=== PATIENT | male | born 1965 | race African-American/Black ===

== ENCOUNTER 2019-03-13 17:06 | Inpatient (IN) | payer OTHER ==
[2019-03-13 22:41] VITALS: BMI 28.8
[2019-03-14] MEDS ORDERED: MAG HYDROX/AL HYDROX/SIMETH 30 ML UNIT-DOSE CUP PO PRN (02:41)
[2019-03-14] MEDS ORDERED: ACETAMINOPHEN 325 MG TABLET (FP) PO PRN ×2 (02:41)
[2019-03-14] MEDS ORDERED: METHOCARBAMOL 500 MG TABLET PO PRN (02:41)
[2019-03-14] MEDS ORDERED: IBUPROFEN 400 MG TABLET (FP) PO PRN (02:41)
[2019-03-14] MEDS ORDERED: BISMUTH SUBSALICYLATE 524 MG/30 ML UD PO PRN (02:41)
[2019-03-14] MEDS ORDERED: ONDANSETRON *ODT* 4 MG TABLET SL PRN (02:41)
[2019-03-14] MEDS ORDERED: MAGNESIUM CITRATE 300 ML BOTTLE PO PRN (02:41)
[2019-03-14] MEDS ORDERED: MELATONIN 5 MG TABLETS PO PRN (02:41)
[2019-03-14] MEDS ORDERED: MENTHOL/PHENOL 1 EACH UD MM PRN (02:41)
[2019-03-14] MEDS ORDERED: NICOTINE POLACRILEX 2 MG GUM BUC PRN (02:41)
[2019-03-14] MEDS ORDERED: MAGNESIUM HYDROX 2400MG/30ML ORAL SUSPENSION 30 ML CUP PO PRN (02:41)
[2019-03-14] MEDS ORDERED: DICYCLOMINE HCL 10 MG CAPSULE PO PRN (02:41)
[2019-03-14] MEDS ORDERED: P-EPHED 60MG/TRIPROLIDI 2.5MG TABLET PO PRN (02:41)
[2019-03-14] MEDS ORDERED: chlordiazePOXIDE HCL 25 MG CAPSULE PO PRN (02:41)
[2019-03-14] MEDS ORDERED: hydrOXYzine PAMOATE 25 MG CAPSULE (FP) PO PRN (02:41)
[2019-03-14] MEDS ORDERED: guaiFENesin 200 MG/10 ML 10 ML UNIT-DOSE CUPS PO PRN (02:41)
--- NOTE | 2019-03-14 02:56 | PN ---
S CIWA - CIWA Score Nausea/Vomitin-No Nausea/No Vomiting Muscle Tremors: 1-None Visible, but [place] Anxiety: 4-Mod. Anxious/Guarded Agitation: 4-Moderately Restless Paroxysmal Sweats: 3 Orientation: 0-Oriented Tacttile Disturbances: 0-None Auditory Disturbances: 0-None Visual Disturbances: 0-None Headache: 0-None Present CIWA-Ar Total Score: 12 BHS Progress Note (SOAP) Subjective: C/O WITHDRAWAL SX'S Objective: 03/14/19 02:37 54 Y.O. MALE WITH ALCOHOLISM AND CRACK COCAINE DEPENDENCE HERE FOR DETOX. HE IS REFERRED TODAY BY [facility]. THIS IS HIS FIRST ADMISSION HERE. PMHX- ASTHMA, SZ D/O PSYCH- BIPOLAR ANXIETY DEPRESSION UTOX + THC, PAM MARIA ANTONIA O A/O X3 SLEEPY BUT EASILY AROUSABLE CV RRR LUNGS CTAB EXTREMITIES FROM X4 SKIN-MOIST/INTACT Assessment: 03/14/19 02:40 F10.23 Plan: ADMIT TO DETOX LIBRIUM PROTOCOL
[2019-03-14] MEDS ORDERED: TUBERCULIN PPD 5 TU/0.1ML VIAL ID ONE (03:41)
[2019-03-14] MEDS: chlordiazePOXIDE HCL 25 MG CAPSULE PO SCH ×4 (06:48→22:13)
--- NOTE | 2019-03-14 08:50 | HP ---
CIWA Score Nausea/Vomitin-No Nausea/No Vomiting Muscle Tremors: 1-None Visible, but [place] Anxiety: 4-Mod. Anxious/Guarded Agitation: 4-Moderately Restless Paroxysmal Sweats: 3 Orientation: 0-Oriented Tacttile Disturbances: 0-None Auditory Disturbances: 0-None Visual Disturbances: 0-None Headache: 0-None Present CIWA-Ar Total Score: 12 - Admission Criteria OASAS Guidelines: Admission for Medically Managed Detox: Requires at least one of the followin. CIWA greater than 12 2. Seizures within the past 24 hours 3. Delirium tremens within the past 24 hours 4. Hallucinations within the past 24 hours 5. Acute intervention needed for co occurring medical disorder 6. Acute intervention needed for co occurring psychiatric disorder 7. Severe withdrawal that cannot be handled at a lower level of care (continued vomiting, continued diarrhea, abnormal vital signs) requiring intravenous medication and/or fluids 8. Admission ROS S - HPI Chief Complaint: I need to be here to get clean from alcohol. Allergies/Adverse Reactions: Allergies Allergy/AdvReac Type Severity Reaction Status Date / Time shellfish derived Allergy Severe Difficulty Verified 03/13/19 22:36 Breathing History of Present Illness: pt is a 54yrold male with a history of alcohol and crack/cocaine dependence seeking detox for treatment. Exam Limitations: No Limitations - Ebola screening Have you traveled outside of the country in the last 21 days: No Have you had contact with anyone from an Ebola affected area: No Have you been sick,other than usual withdrawal symptoms: No Do you have a fever: No - Review of Systems Constitutional: Chills, Diaphoresis, Changes in sleep EENT: reports: No Symptoms Reported Respiratory: reports: No Symptoms reported Cardiac: reports: No Symptoms Reported GI: reports: No Symptoms Reported : reports: No Symptoms Reported Musculoskeletal: reports: Joint Pain, Muscle Pain Integumentary: reports: No Symptoms Reported Neuro: reports: No Symptoms reported Endocrine: reports: Excessive Sweating, Flushing, Intolerance to Cold, Intolerance to Heat Hematology: reports: No Symptoms Reported Psychiatric: reports: Judgement Intact, Mood/Affect Appropiate, Orientated x3, Agitated, Anxious Other Systems: Reviewed and Negative Patient History - Patient Medical History Hx Anemia: No Hx Asthma: Yes (albuterol) Hx Chronic Obstructive Pulmonary Disease (COPD): No Hx Cancer: No Hx Cardiac Disorders: No Hx Congestive Heart Failure: No Hx Hypertension: No Hx Hypercholesterolemia: No Hx Pacemaker: No HX Cerebrovascular Accident: No Hx Seizures: Yes (last seizure 2yrs ago on depakote ) Hx Dementia: No Hx Diabetes: No Hx Gastrointestinal Disorders: No Hx Liver Disease: No Hx Genitourinary Disorders: No Hx Sexually Transmitted Disorders: No Hx Renal Disease (ESRD): No Hx Thyroid Disease: No Hx Human Immunodeficiency Virus (HIV): No (negative) Hx Hepatitis C: No (negative) Hx Depression: Yes Hx Suicide Attempt: No (pt denies) Hx Bipolar Disorder: Yes Hx Schizophrenia: No - Patient Surgical History Past Surgical History: No Anesthesia Reaction: No - PPD History Previous Implant?: No Documented Results: Negative w/o proof Implanted On Prior R Admission?: No Date: 03/14/19 PPD to be Administered?: Yes - Reproductive History Patient is a Female of Child Bearing Age (11 -55 yrs old): No - Smoking Cessation Smoking history: Current every day smoker Have you smoked in the past 12 months: Yes Aproximately how many cigarettes per day: 20 Hx Chewing Tobacco Use: No Initiated information on smoking cessation: Yes 'Breaking Loose' booklet given: 03/14/19 - Substance & Tx. History Hx Alcohol Use: Yes Hx Substance Use: Yes Substance Use Type: Alcohol, Cocaine Hx Substance Use Treatment: Yes (last detox [address] [place] [address]) - Substances abused Alcohol Substance route: Oral Frequency: 3-6 times per week Amount used: 4-5 40 ounces beer Age of first use: 21 Date of last use: 03/13/19 Crack Substance route: Smoking Frequency: 3-6 times per week Amount used: $100 Age of first use: 21 Date of last use: 03/06/19 Family Disease History - Family Disease History Family Disease History: Diabetes: Mother Admission Physical Exam BHS - Vital Signs Vital Signs: Vital Signs - 24 hr 03/13/19 03/14/19 03/14/19 22:26 01:25 03:30 Temperature 97.2 F L 97.2 F L 97.9 F Pulse Rate 99 H 99 H 72 Respiratory 16 16 18 Rate Blood Pressure 130/75 130/75 133/90 03/14/19 06:00 Temperature 97.7 F Pulse Rate 77 Respiratory 18 Rate Blood Pressure 111/71 - Physical General Appearance: Yes: Appropriately Dressed, Tremorous, Sweating, Anxious HEENTM: Yes: Hearing grossly Normal, Nasal Congestion Respiratory: Yes: Lungs Clear Neck: Yes: No masses,lesions,Nodules Breast: Yes: Within Normal Limits Cardiology: Yes: Regular Rhythm, Regular Rate, S1, S2 Abdominal: Yes: Normal Bowel Sounds, Non Tender, Soft Genitourinary: Yes: Within Normal Limits Back: Yes: Normal Inspection Musculoskeletal: Yes: full range of Motion, Back pain Extremities: Yes: Normal Capillary Refill, Normal Inspection, Non-Tender, Tremors Neurological: Yes: Fully Oriented, Alert, Normal Response Integumentary: Yes: Normal Color, Diaphoresis Lymphatic: Yes: Within Normal Limits - Diagnostic (1) Alcohol dependence with uncomplicated withdrawal Current Visit: Yes Status: Chronic (2) Nicotine dependence Current Visit: Yes Status: Chronic Qualifiers: Nicotine product type: cigarettes Substance use status: uncomplicated Qualified Code(s): F17.210 - Nicotine dependence, cigarettes, uncomplicated (3) Seizures Current Visit: Yes Status: Chronic Cleared for Admission S - Detox or Rehab [facility] Level of Care: Medically Managed Detox Regimen/Protocol: Librium Breathalyzer - Breathalyzer Breathalyzer: 0 Urine Drug Screen - Test Device Lot number: [id number] Expiration date: 01/03/21 - Control Is test valid?: Yes - Results Drug screen NEGATIVE: No Urine drug screen results: THC-Marijuana, PAM-Cocaine Inpatient Rehab Admission - Rehab Decision to Admit Inpatient rehab admission?: No
--- NOTE | 2019-03-14 09:10 | CONSULT ---
[facility] Psychiatric Consult - Data Date of interview: 03/14/19 Admission source: [facility] Identifying data: Mr Francisco is a 54 years old single Black male, father of 3 children, unemployed receiving SSI, homeless seeking detox treatment for alcohol and cocaine Substance Abuse History: Reports history of alcohol and crack cocaine use. Refer to addiction counselor/s summary for further information Medical History: Significant bronchial asthma and seizure disorder. . Smokes cigarettes 1 ppd Psychiatric History: Reports that his first psychiatric contact was in 1980 when he was diagnosed with MDD by a psychiatrist in the community. He was started on psychotropic medications which he reports taking for a year. Reports that his next psychiatric contact was in 2002 when his diagnosis was revised to Bipolar Disorder and he was started on Celexa, Depakote and Trazadone. He currently receives outpatient psychiatric treatment at [facility] on in [place] and he is prescribed Celexa 20 mg/day, Depakote ER 1000 mg/ hs and Trazadone 100 mg/hs. Reports last taking medications a week ago. Reports 2 previous suicidal attempt a year apart 2015 and 2016 by tryiing to shoot himself. At present, denies experiencing psychotic, manic symptoms, S/H iseations. However, reports feeling mildly depressed and sleeping poorly Physical/Sexual Abuse/Trauma History: Denies history of emotional, physical or sexual abuse as well as DV relationship. No service Additional Comment: Denies criminal history Mental Status Exam - Mental Status Exam Alert and Oriented to: Time, Place, Person Cognitive Function: Fair Patient Appearance: Well Groomed Mood: Depressed (mildly) Affect: Appropriate Patient Behavior: Cooperative Speech Pattern: Clear Voice Loudness: Normal Thought Process: Intact, Goal Oriented Thought Disorder: Not Present Hallucinations: Denies Suicidal Ideation: Denies Homicidal Ideation: Denies Insight/Judgement: Poor Sleep: Poorly Appetite: Good Muscle strength/Tone: Normal Gait/Station: Normal Psychiatric Findings - Problem List ([place] 1, 2,3) (1) Bipolar II disorder Current Visit: Yes Status: Chronic (2) Substance induced mood disorder Current Visit: Yes Status: Acute (3) Substance-induced sleep disorder Current Visit: Yes Status: Acute (4) Alcohol dependence with uncomplicated withdrawal Current Visit: Yes Status: Acute (5) Cocaine dependence Current Visit: Yes Status: Acute (6) Nicotine dependence Current Visit: Yes Status: Chronic Qualifiers: Nicotine product type: cigarettes Substance use status: uncomplicated Qualified Code(s): F17.210 - Nicotine dependence, cigarettes, uncomplicated (7) Seizures Current Visit: Yes Status: Chronic (8) Bronchial asthma Current Visit: Yes Status: Chronic - Initial Treatment Plan Initial Treatment Plan: 1) Resume Celexa 20 mg po daily, Depakote ER 1000 mg po HS and Trazadone 100 mg po HS. 2) Continue inpatient detoxification
[2019-03-14] MEDS ORDERED: DIVALPROEX NA *ER* EXTEND REL 500 MG TABLET.SA (FP) PO SCH (10:00)
[2019-03-14] MEDS: CITALOPRAM HYDROBROMIDE 20 MG TABLET (FP) PO SCH (11:03)
[2019-03-14] MEDS: PRENATAL VITAMINS W/ FOLIC ACID TABLET (FP) PO SCH (11:03)
[2019-03-14] MEDS: NICOTINE 21 MG/24 HOURS TOPICAL PATCH TD SCH (11:03)
[2019-03-14 12:17] LABS: HEMATOCRIT 37.5 % (35.4-49); HEMOGLOBIN 12.5 GM/dL (11.7-16.9); MCH 28.9 pg (25.7-33.7); MCHC 33.4 g/dl (32.0-35.9); MEAN CELL VOLUME 86.4 fl (80-96); MEAN PLT VOLUME 9.8 fl (7.5-11.1); PLATELET COUNT 178 K/MM3 (134-434); RBC 4.34 M/mm3 (4.00-5.60); RDW 13.7 % (11.9-15.9); WHITE BLOOD COUNT 5.4 K/mm3 (4.0-10.0)
[2019-03-14 12:57] LABS: ALBUMIN 3.7 g/dl (3.4-5.0); BILIRUBIN,TOTAL 0.3 mg/dL (0.2-1); BLOOD UREA NITROGEN 9.4 mg/dL (7-18); CALCIUM 9.2 mg/dL (8.5-10.1); CREATININE 1.1 mg/dL (0.55-1.3); POTASSIUM 4.9 mmol/L (3.5-5.1); TOT PROT 7.1 g/dl (6.4-8.2)
--- NOTE | 2019-03-14 14:34 | EKG ---
Test Reason : Blood Pressure : / mmHG Vent. Rate : 074 BPM Atrial Rate : 074 BPM P-R Int : 178 ms QRS Dur : 086 ms QT Int : 376 ms P-R-T Axes : 052 -05 018 degrees QTc Int : 417 ms POOR DATA QUALITY, INTERPRETATION MAY BE ADVERSELY AFFECTED NORMAL SINUS RHYTHM NORMAL ECG NO PREVIOUS ECGS AVAILABLE Confirmed by Chuck Lane ([id number]) on 03/14/2019 2:34:11 PM Referred By: Confirmed By:Chuck Lane
[2019-03-14] MEDS: traZODone HCL 100 MG TABLET (FP) PO SCH (22:13)
[2019-03-14] MEDS: DIVALPROEX NA *ER* EXTEND REL 500 MG TABLET.SA (FP) PO SCH (22:13)
[2019-03-14] MEDS: THIAMINE HCL 100 MG TABLET (FP) PO SCH (22:14)
[2019-03-15] MEDS: chlordiazePOXIDE HCL 25 MG CAPSULE PO SCH ×4 (06:24→23:14)
[2019-03-15] MEDS ORDERED: ASPIRIN 81 MG CHEWABLE TABLETS ONE (10:10)
[2019-03-15] MEDS ORDERED: NITROGLYCERIN SUBLINGUAL 1/150 0.4 MG TAB SL ONE ×2 (10:30→11:30)
--- NOTE | 2019-03-15 11:05 | PN ---
[facility] Progress Note Note: Pt approached the nursing area clutching the left side of his chest and stating my chest hurts. Pt appeared weak. He was laid to the floor by myself and staff, Nitoglycerin 0.4mg x 2 administered, ASA 81mg administered, O2 via NC at 6liters given. Last BP was 175/91, O2 98%. 911 was called and . Pt was AAOX3, states his chest pain was relieving within 6-8mins after administration of medication. [facility] arrived to have pt sent to [facility] ED for evaluation. Pt in agreement with treatment.
[2019-03-15] MEDS: CITALOPRAM HYDROBROMIDE 20 MG TABLET (FP) PO SCH (11:19)
[2019-03-15] MEDS: NICOTINE 21 MG/24 HOURS TOPICAL PATCH TD SCH (11:19)
[2019-03-15] MEDS: PRENATAL VITAMINS W/ FOLIC ACID TABLET (FP) PO SCH (11:20)
[2019-03-15] MEDS ORDERED: ASPIRIN 81 MG CHEWABLE TABLETS PO ONE (11:30)
[2019-03-15] MEDS: traZODone HCL 100 MG TABLET (FP) PO SCH (22:19)
[2019-03-15] MEDS: THIAMINE HCL 100 MG TABLET (FP) PO SCH (22:19)
[2019-03-16] MEDS ORDERED: chlordiazePOXIDE HCL 10 MG CAPSULE PO PRN
[2019-03-16] MEDS: DIVALPROEX NA *ER* EXTEND REL 500 MG TABLET.SA (FP) PO SCH ×2 (00:30→22:44)
[2019-03-16] MEDS: chlordiazePOXIDE HCL 10 MG CAPSULE PO SCH ×4 (05:58→22:44)
[2019-03-16] MEDS: NICOTINE 21 MG/24 HOURS TOPICAL PATCH TD SCH (11:04)
[2019-03-16] MEDS: CITALOPRAM HYDROBROMIDE 20 MG TABLET (FP) PO SCH (11:04)
[2019-03-16] MEDS: PRENATAL VITAMINS W/ FOLIC ACID TABLET (FP) PO SCH (11:05)
--- NOTE | 2019-03-16 11:47 | PN ---
S CIWA - CIWA Score Nausea/Vomitin Muscle Tremors: 2 Anxiety: 2 Agitation: 2 Paroxysmal Sweats: No Perspiration Orientation: 0-Oriented Tacttile Disturbances: 1-Very Mild Itch/Numbness Auditory Disturbances: 1-Very Mild Visual Disturbances: 0-None Headache: 2-Mild CIWA-Ar Total Score: 12 S Progress Note (SOAP) Subjective: alert,irritable,anxious,interrupted sleep,tremor,no chest pain medically clear to return to [facility] to continue detox Objective: 03/16/19 11:59 Vital Signs Temperature 98.1 F 03/16/19 09:41 Pulse Rate 84 03/16/19 09:41 Respiratory Rate 16 03/16/19 09:41 Blood Pressure 116/72 03/16/19 09:41 O2 Sat by Pulse Oximetry (%) Laboratory Last Values WBC 5.4 K/mm3 (4.0-10.0) 03/14/19 06:00 RBC 4.34 M/mm3 (4.00-5.60) 03/14/19 06:00 Hgb 12.5 GM/dL (11.7-16.9) 03/14/19 06:00 Hct 37.5 % (35.4-49) 03/14/19 06:00 MCV 86.4 fl (80-96) 03/14/19 06:00 MCH 28.9 pg (25.7-33.7) 03/14/19 06:00 MCHC 33.4 g/dl (32.0-35.9) 03/14/19 06:00 RDW 13.7 % (11.9-15.9) 03/14/19 06:00 Plt Count 178 K/MM3 (134-434) 03/14/19 06:00 MPV 9.8 fl (7.5-11.1) 03/14/19 06:00 Sodium 141 mmol/L (136-145) 03/14/19 06:00 Potassium 4.9 mmol/L (3.5-5.1) 03/14/19 06:00 Chloride 107 mmol/L (98-107) 03/14/19 06:00 Carbon Dioxide 29 mmol/L (21-32) 03/14/19 06:00 Anion Gap 5 MMOL/L (8-16) L 03/14/19 06:00 BUN 9.4 mg/dL (7-18) 03/14/19 06:00 Creatinine 1.1 mg/dL (0.55-1.3) 03/14/19 06:00 Est GFR (CKD-EPI)AfAm 88.36 03/14/19 06:00 Est GFR (CKD-EPI)NonAf 76.24 03/14/19 06:00 Random Glucose 88 mg/dL (74-106) 03/14/19 06:00 Calcium 9.2 mg/dL (8.5-10.1) 03/14/19 06:00 Total Bilirubin 0.3 mg/dL (0.2-1) 03/14/19 06:00 AST 20 U/L (15-37) 03/14/19 06:00 ALT 22 U/L (13-61) 03/14/19 06:00 Alkaline Phosphatase 63 U/L (45-117) 03/14/19 06:00 Total Protein 7.1 g/dl (6.4-8.2) 03/14/19 06:00 Albumin 3.7 g/dl (3.4-5.0) 03/14/19 06:00 RPR Titer Nonreactive (NONREACTIVE) 03/14/19 06:00 Assessment: 03/16/19 12:00 withdrawal symptom Plan: continue detox librium regimen.close monitoring for chest pain
[2019-03-16] MEDS: traZODone HCL 100 MG TABLET (FP) PO SCH (22:45)
[2019-03-16] MEDS: THIAMINE HCL 100 MG TABLET (FP) PO SCH (22:45)
[2019-03-17] MEDS ORDERED: chlordiazePOXIDE HCL 10 MG CAPSULE PO SCH (05:00)
--- NOTE | 2019-03-17 09:31 | DS ---
[facility] Detox Discharge Summary Admission Date: 03/14/19 Discharge Date: 03/17/19 - History Present History: Alcohol Dependence, Cocaine Dependence - Physical Exam Results Vital Signs: Vital Signs Temperature 97.7 F 03/16/19 22:54 Pulse Rate 91 H 03/16/19 22:54 Respiratory Rate 18 03/17/19 03:30 Blood Pressure 142/70 03/16/19 22:54 O2 Sat by Pulse Oximetry (%) Pertinent Admission Physical Exam Findings: pt arrived in withdrawals Laboratory Tests 03/14/19 03/14/19 03/14/19 06:00 06:00 06:00 WBC 5.4 RBC 4.34 Hgb 12.5 Hct 37.5 MCV 86.4 MCH 28.9 MCHC 33.4 RDW 13.7 Plt Count 178 MPV 9.8 Sodium 141 Potassium 4.9 Chloride 107 Carbon Dioxide 29 Anion Gap 5 L BUN 9.4 Creatinine 1.1 Est GFR (CKD-EPI)AfAm 88.36 Est GFR (CKD-EPI)NonAf 76.24 Random Glucose 88 Calcium 9.2 Total Bilirubin 0.3 AST 20 ALT 22 Alkaline Phosphatase 63 Total Protein 7.1 Albumin 3.7 RPR Titer Nonreactive today he shows no s/s of withdrawals - Treatment Hospital Course: Detox Protocol Followed, Detoxed Safely, Responded well, Discharged Condition Good, Rehab Referral Accepted - Medication Discharge Medications: Ambulatory Orders Citalopram Hydrobromide [Celexa -] 20 mg PO DAILY 03/13/19 Divalproex *ER* [Depakote *ER* -] 1,000 mg PO DAILY 03/13/19 traZODone HCL [Trazodone HCl] 100 mg PO HS 03/13/19 - Diagnosis (1) Alcohol dependence with uncomplicated withdrawal Current Visit: Yes Status: Chronic (2) Nicotine dependence Current Visit: Yes Status: Chronic Qualifiers: Nicotine product type: cigarettes Substance use status: uncomplicated Qualified Code(s): F17.210 - Nicotine dependence, cigarettes, uncomplicated (3) Seizures Current Visit: Yes Status: Chronic - AMA Did Patient Leave Against Medical Advice: No (pt referred to [facility] inpatient rehab)
[2019-03-17 09:49] VITALS: BP 141/93; PULSE 81; TEMP 98.6
[2019-03-17] MEDS: PRENATAL VITAMINS W/ FOLIC ACID TABLET (FP) PO SCH (10:02)
[2019-03-17] MEDS: CITALOPRAM HYDROBROMIDE 20 MG TABLET (FP) PO SCH (10:02)
[2019-03-17] MEDS: NICOTINE 21 MG/24 HOURS TOPICAL PATCH TD SCH (10:03)
[2019-03-18] MEDS ORDERED: chlordiazePOXIDE HCL 10 MG CAPSULE PO ONE (05:00)
--- NOTE | 2019-05-02 09:37 | EKG ---
Test Reason : Blood Pressure : / mmHG Vent. Rate : 073 BPM Atrial Rate : 073 BPM P-R Int : 184 ms QRS Dur : 090 ms QT Int : 338 ms P-R-T Axes : 056 002 022 degrees QTc Int : 372 ms NORMAL SINUS RHYTHM NONSPECIFIC T WAVE ABNORMALITY ABNORMAL ECG WHEN COMPARED WITH ECG OF 15-MAR-2019 10:56, CRITERIA FOR SEPTAL INFARCT ARE NO LONGER PRESENT Confirmed by Sanjay Arredondo MD ([id number]) on 05/02/2019 9:37:24 AM Referred By: Confirmed By:Sanjay Arredondo MD
== END 2019-03-17 10:27 | disposition home or self-care (01) | DRG 774 ==
LOC: YASAS 17:06 → Y6N 03-14 03:01
PROVIDERS: ADMIT Surgery; ATTEND Surgery
PROC: HZ2ZZZZ Detoxification Services for Substance Abuse Treatment (ICD-10-PCS; principal; 2019-03-14)
DX: F10.230 Alcohol dependence with withdrawal, uncomplicated (principal); F14.20 Cocaine dependence, uncomplicated; F17.210 Nicotine dependence, cigarettes, uncomplicated; F19.24 Other psychoactive substance dependence with psychoactive substance-induced mood disorder; F19.282 Other psychoactive substance dependence with psychoactive substance-induced sleep disorder; F31.81 Bipolar II disorder; G40.909 Epilepsy, unspecified, not intractable, without status epilepticus; J45.909 Unspecified asthma, uncomplicated; R07.9 Chest pain, unspecified
CPT/HCPCS: 36415; 80053; 85027; 86593; 93005; 93010

== ENCOUNTER 2019-03-15 10:47 | Emergency (ER) | payer OTHER ==
[2019-03-15 11:01] VITALS: TEMP 97.4; BMI 28.8
[2019-03-15] MEDS ORDERED: ASPIRIN 325 MG TABLET PO ONE (11:38)
[2019-03-15] MEDS ORDERED: ASPIRIN 325 MG TABLET ONE (12:26)
[2019-03-15 12:47] LABS: BASO % 1.2 % (0-2.0); EOS % 8.3 % (0-4.5); HEMATOCRIT 36.9 % (35.4-49); HEMOGLOBIN 12.3 GM/dL (11.7-16.9); LYMPH % 29.3 % (8-40); MCH 28.9 pg (25.7-33.7); MCHC 33.2 g/dl (32.0-35.9); MEAN CELL VOLUME 86.9 fl (80-96); MEAN PLT VOLUME 9.4 fl (7.5-11.1); MONO % 7.8 % (3.8-10.2); NEUT % 53.4 % (42.8-82.8); PLATELET COUNT 189 K/MM3 (134-434); RBC 4.25 M/mm3 (4.00-5.60); RDW 14.1 % (11.9-15.9); WHITE BLOOD COUNT 5.8 K/mm3 (4.0-10.0)
[2019-03-15 12:50] LABS: ALBUMIN 3.4 g/dl (3.4-5.0); ALK PHOS 60 U/L (45-117); ANION GAP 2 MMOL/L (8-16); BILIRUBIN,TOTAL 0.2 mg/dL (0.2-1); BLOOD UREA NITROGEN 8.1 mg/dL (7-18); CALCIUM 9.3 mg/dL (8.5-10.1); CHLORIDE 106 mmol/L (98-107); CO2 33 mmol/L (21-32); CREATININE 1.2 mg/dL (0.55-1.3); GLUCOSE,RANDOM 117 mg/dL (74-106); LIPASE 136 U/L (73-393); POTASSIUM 4.5 mmol/L (3.5-5.1); SGOT/AST 16 U/L (15-37); SGPT/ALT 22 U/L (13-61); SODIUM 141 mmol/L (136-145); TOT PROT 6.7 g/dl (6.4-8.2)
--- NOTE | 2019-03-15 12:53 | PDOC ---
Documentation entered by Wesley Andrew SCRIBE, acting as scribe for Adrian Dejesus MD. Adrian eDjesus MD: This documentation has been prepared by the Lorrie jean Elijah, SCRIBE, under my direction and personally reviewed by me in its entirety. I confirm that the documentation accurately reflects all work, treatment, procedures, and medical decision making performed by me. History of Present Illness - General Chief Complaint: Chest Pain Stated Complaint: CHEST PAIN Time Seen by Provider: 03/15/19 11:13 History Source: Patient Exam Limitations: No Limitations - History of Present Illness Initial Comments: 03/15/19 11:44 Patient is a 54 year old male with a significant past medical history of ETOH and crack cocaine abuse and asthma who presents to the ED with Chest Pain. Patient describes the pain as a stabbing sensation in the middle of his chest. Pt denies SOB. States that the pain is not worse with exertion or deep inspiration. Denies radiation of pain to back. Pt denies leg swelling. Denies recent travel/immobilization. Pt is current smoker. Denies Fever, Cough, Abdominal Pain, Nausea and Vomiting. Allergies: Shellfish, NKDA Social History: Tobacco User Past History - Past Medical History Allergies/Adverse Reactions: Allergies Allergy/AdvReac Type Severity Reaction Status Date / Time shellfish derived Allergy Severe Difficulty Verified 03/15/19 10:57 Breathing No Known Drug Allergies Allergy Verified 03/15/19 10:57 Home Medications: Ambulatory Orders Citalopram Hydrobromide [Celexa -] 20 mg PO DAILY 03/13/19 Divalproex *ER* [Depakote *ER* -] 1,000 mg PO DAILY 03/13/19 traZODone HCL [Trazodone HCl] 100 mg PO HS 03/13/19 Anemia: No Asthma: Yes (albuterol) Cancer: No Cardiac Disorders: No CVA: No COPD: No CHF: No Dementia: No Diabetes: No GI Disorders: No Disorders: No HTN: No Hypercholesterolemia: No Liver Disease: No Seizures: Yes (last seizure 2yrs ago on depakote ) Thyroid Disease: No - Reproductive History Testicular Surgery: No - Suicide/Smoking/Psychosocial Hx Smoking History: Never smoked Have you smoked in the past 12 months: Yes Number of Cigarettes Smoked Daily: 20 'Breaking Loose' booklet given: 03/14/19 Hx Alcohol Use: Yes Drug/Substance Use Hx: Yes Substance Use Type: Alcohol, Cocaine Hx Substance Use Treatment: Yes (last detox [facility]) Review of Systems - Review of Systems Comments:: 03/15/19 11:45 GENERAL/CONSTITUTIONAL: No fever or chills. No weakness. HEAD, EYES, EARS, NOSE AND THROAT: No change in vision. No ear pain or discharge. No sore throat. CARDIOVASCULAR: +Chest pain. no shortness of breath, no loss of consciousness RESPIRATORY: No cough, wheezing, or hemoptysis. GASTROINTESTINAL: No nausea, vomiting, diarrhea or constipation. GENITOURINARY: No dysuria, frequency, or change in urination. MUSCULOSKELETAL: No joint or muscle swelling or pain. No neck or back pain. SKIN: No rash NEUROLOGIC: No vertigo, no change in strength/sensation. ENDOCRINE: No increased thirst. No abnormal weight change. HEMATOLOGIC/LYMPHATIC: No anemia, easy bleeding, or history of blood clots. ALLERGIC/IMMUNOLOGIC: No hives or skin allergy. *Physical Exam - Vital Signs Last Vital Signs Temp Pulse Resp BP Pulse Ox 97.4 F L 90 18 138/109 H 03/15/19 10:57 03/15/19 10:57 03/15/19 10:57 03/15/19 10:57 - Physical Exam Comments: 03/15/19 11:45 GENERAL: Awake, alert, and fully oriented, in no acute distress. HEAD: No signs of trauma EYES: PERRLA, EOMI, sclera anicteric, conjunctiva clear ENT: Auricles normal inspection, hearing grossly normal, nares patent, oropharynx clear without exudates. Moist mucosa NECK: Nontender, no stepoffs, Normal ROM, supple, no lymphadenopathy, JVD, or masses LUNGS: Breath sounds equal, clear to auscultation bilaterally. No wheezes, and no crackles HEART: Regular rate and rhythm, normal S1 and S2, no murmurs, rubs or gallops ABDOMEN: Soft, nontender, normoactive bowel sounds. No guarding, no rebound. No masses EXTREMITIES: Normal range of motion, no edema. No clubbing or cyanosis. No cords, erythema, or tenderness NEUROLOGICAL: Cranial nerves II through XII intact. 5/5 strength and sensation in all extremities, Normal speech, normal gait, normal cerebellar function SKIN: Warm, Dry, normal turgor, no rashes or lesions noted. Heart Score/ECG Review - History History: Slightly suspicious - Electrocardiogram EKG: Normal - Age Age: 45-65 - Risk Factors Risk Factors Heart Score: Yes Hx Hypertension, Yes Smoking History, Yes Positive family hx of cardiac disease Based on the list above the patient has:: >/=3 risk factors or Hx atherosclerotic disease - Troponin Troponin: </= normal limit - Score Heart Score - Total: 3 - ECG Impressions Comment:: 03/15/19 12:52 NSR, no CECELIA/STDs, no TWIs, axis wnl, intervals wnl, rate81 ED Treatment Course - LABORATORY CBC & Chemistry Diagram: 03/15/19 11:38 03/15/19 11:38 - RADIOLOGY Radiology Studies Ordered: Category Date Time Status CHEST PA & LAT [RAD] Stat Radiology 03/15/19 11:38 Completed - Medications Given in the ED: ED Medications Discontinued Medications Generic Name Dose Route Start Last Admin Trade Name Trell PRN Reason Stop Dose Admin Aspirin 325 mg 03/15/19 11:38 03/15/19 12:30 Asa - PO 03/15/19 11:39 325 mg ONCE ONE Administration Medical Decision Making - Medical Decision Making 03/15/19 12:52 54 M with chest pain. EKG with no ischemic changes, but pt has several cardiac risk factors. Will r/o ACS. Also consider cocaine induced chest pain. - Labs, trop x2 - CXR - Aspirin 03/15/19 16:14 Labs wnl trop negative x2 CXR clear Pt reassessed - chest pain now resolved. Pt is well appearing, with normal vitals. Clinically stable for DC at this time. I discussed the physical exam findings, ancillary test results and final diagnoses with the patient. I answered all of the patient's questions. The patient was satisfied with the care received and felt comfortable with the discharge plan and treatment plan. The patient agrees to follow up with the primary care physician within 24-72 hours. *DC/Admit/Observation/Transfer Diagnosis at time of Disposition: Chest pain - Discharge Dispostion Disposition: HOME - Referrals Referrals: Cleveland Giron MD [Staff Physician] - - Patient Instructions Printed Discharge Instructions: DI for Atypical Chest Pain Additional Instructions: Your labwork and x ray were normal today. However, this does not rule out all heart disease. Please follow up with a bell staff within 1 week for further evaluation of your chest pain. If you experience recurrent pain, shortness of breath, or any other concerning symptoms, return to the ER immediately. You also need to have your blood pressure re-checked by your primary doctor, as it was slightly elevated today. Uncontrolled blood pressure can eventually lead to kidney disease, heart disease, other serious illness, disability, or even . - Post Discharge Activity - Attestations Physician Attestion: 03/15/19 16:18 I, Dr. Adrian Dejesus MD, attest that this document has been prepared under my direction and personally reviewed by me in its entirety. I further attest, that it accurately reflects all work, treatment, procedures and medical decision -making performed by me.
[2019-03-15 13:36] LABS: INR 1.03 (0.83-1.09); PROTHROMBIN TIME (PATIENT) 12.2 SEC (9.7-13.0)
--- NOTE | 2019-03-15 14:50 | EKG ---
Test Reason : Blood Pressure : / mmHG Vent. Rate : 081 BPM Atrial Rate : 081 BPM P-R Int : 174 ms QRS Dur : 086 ms QT Int : 348 ms P-R-T Axes : 069 -06 036 degrees QTc Int : 404 ms NORMAL SINUS RHYTHM SEPTAL INFARCT , AGE UNDETERMINED ABNORMAL ECG WHEN COMPARED WITH ECG OF 14-MAR-2019 02:57, SEPTAL INFARCT IS NOW PRESENT Confirmed by ANCA DAVE, PAUL ([id number]) on 03/15/2019 2:50:41 PM Referred By: Confirmed By:PAUL MARCH MD
[2019-03-15 17:24] VITALS: BP 125/65; PULSE 78
== END 2019-03-15 20:59 | disposition home or self-care (01) ==
LOC: JER 10:47
DX: R07.9 Chest pain, unspecified (principal); F17.210 Nicotine dependence, cigarettes, uncomplicated; J45.909 Unspecified asthma, uncomplicated; F10.10 Alcohol abuse, uncomplicated; F14.10 Cocaine abuse, uncomplicated
CPT/HCPCS: 36415; 71046-TC-FY; 80053; 82550; 83690; 84484; 85025; 85610; 85730; 93005; 93010; 99283-25